=== PATIENT | male | born 1960 | race Caucasian/White ===

== ENCOUNTER → 2018-08-20 14:25 | Outpatient (CLI) | payer OTHER, MEDICAID, SELFPAY ==
--- NOTE | 2018-08-20 | DI.RAD.S_ITS ---
PROCEDURE: XR THORACIC SPINE 3V INDICATIONS: Low back pain TECHNIQUE: 3 views of the thoracic spine were acquired. COMPARISON: None. FINDINGS: Bones: No fractures or dislocations. No suspicious bony lesions. 12 pairs of ribs are noted, and appear intact where visualized. Mild degenerative endplate changes are noted in mid to lower thoracic spine. Very mild dextroscoliosis centered at T7 level is also seen. Soft tissues: No paravertebral stripe thickening. IMPRESSION: Very mild dextroscoliosis of thoracic spine. Mild degenerative disc disease in mid to lower thoracic spine. No compression fracture or traumatic spondylolisthesis. Dictated by: Jose Tidwell M.D. on 08/20/2018 at 15:25 Approved by: Jose Tidwell M.D. on 08/20/2018 at 15:28
--- NOTE | 2018-08-20 14:35 | DI.RAD.S_ITS ---
PROCEDURE: XR LUMBAR SPINE 2V INDICATIONS: Low back pain TECHNIQUE: 2 views of the lumbar spine acquired. COMPARISON: None. FINDINGS: Bones: 5 nonrib-bearing vertebrae are present. There is minimal anterolisthesis of L4 on L5.. No vertebral body compression fractures. No suspicious bony lesions. Mild degenerative endplate changes and bilateral facet arthrosis at L4-5 and L5-S1 levels are seen. Soft tissues: Overlying bowel gas pattern is normal. No suspicious soft tissue calcifications. IMPRESSION: Mild degenerative changes at L4-5 and L5-S1 levels with minimal anterolisthesis of L4 on L5. No compression fracture. Dictated by: Jose Tidwell M.D. on 08/20/2018 at 15:28 Approved by: Jose Tidwell M.D. on 08/20/2018 at 15:29
--- NOTE | 2018-08-20 14:35 | DI.RAD.S_ITS ---
PROCEDURE: XR CERVICAL SPINE 2V OR 3V INDICATIONS: Low back pain TECHNIQUE: 3 view(s) of the cervical spine were acquired. COMPARISON: None. FINDINGS: Bones: No fractures or dislocations to the T4 level. The lateral masses of C1 appear intact on the odontoid view. No suspicious bony lesions. Minimal anterolisthesis of C4 on C5 is noted. Mild degenerative endplate changes are seen at C4-5 through C6-7 levels. Soft tissues: No prevertebral soft tissue swelling. IMPRESSION: Mild degenerative disc disease at C4-5 through C6-7 levels. Minimal anterolisthesis of C4 on C5. No compression fracture. Dictated by: Jose Tidwell M.D. on 08/20/2018 at 15:29 Approved by: Jose Tidwell M.D. on 08/20/2018 at 15:30
== END ==
PROVIDERS: PCP Family Medicine; Visit Provider Family Medicine
DX: M51.34 Other intervertebral disc degeneration, thoracic region (principal); M51.36 Other intervertebral disc degeneration, lumbar region; M51.37 Other intervertebral disc degeneration, lumbosacral region; M50.321 Other cervical disc degeneration at C4-C5 level; M41.84 Other forms of scoliosis, thoracic region; M54.5 Low back pain; G89.29 Other chronic pain
CPT/HCPCS: 72040; 72072; 72100

== ENCOUNTER → 2018-12-15 10:20 | Outpatient (CLI) | payer OTHER, SELFPAY ==
[2018-12-15 10:54] LABS: Hematocrit 44.1 % (41-53); Hemoglobin 14.8 g/dL (13.5-17.5); Mean Corpuscular HGB Conc 33.5 % (30-36); Mean Corpuscular Volume 92.5 fL (80-100); Platelet Count 237 X10^3/uL (150-400); Red Blood Cell Count 4.77 X10^6/uL (4.5-5.9); Red Cell Distribution Width 13.4 % (11.6-14.8); White Blood Cell Count 6.2 X10^3/uL (4.5-11.0)
[2018-12-15 11:17] LABS: Blood Urea Nitrogen 16 mg/dL (9-20); Calcium 9.1 mg/dL (8.4-10.2); Carbon Dioxide 31 mmol/L (22-32); Chloride 101 mmol/L (98-107); Estimated Glomerular Filt Rate > 60.0 mL/min (>60); Glucose 101 mg/dL (70-100); HEMOLYSIS < 15 (0-50); Potassium 3.9 mmol/L (3.4-5.1); Sodium 139 mmol/L (137-145)
== END ==
PROVIDERS: Family Provider Family Medicine; PCP Family Medicine; Visit Provider Orthopaedic Surgery Orthopaedic Surgery of the Spine
DX: Z01.818 Encounter for other preprocedural examination (principal)
CPT/HCPCS: 36415; 80048; 85027; 93005; 93010

== ENCOUNTER → 2020-09-01 13:45 | Outpatient (CLI) | payer OTHER, SELFPAY ==
[2020-09-03 08:04] LABS: COVID19 Sendout Not Detected (Not Detect)
== END ==
PROVIDERS: Family Provider Family Medicine; PCP Family Medicine; Visit Provider Physician Assistant
DX: Z01.812 Encounter for preprocedural laboratory examination (principal)
CPT/HCPCS: 87635

== ENCOUNTER 2020-09-04 09:58 | Day surgery (SDC) | payer OTHER, SELFPAY ==
[2020-08-31 10:39] VITALS: BMI 22.5
[2020-09-04] VITALS (7 sets, daily range): BP systolic 105–142; BP diastolic 77–94; PULSE 57–78; RESP 10–20; TEMP 36.4; O2SAT 96–100; BMI 22.5
[2020-09-04] MEDS: LACTATED RINGERS 1,000 ML 100 ML IV (10:40)
--- NOTE | 2020-09-04 11:27 | PM.PREOP ---
Pre-operative Note COVID-19 COVID-19 status: Negative Interval Note History & Physical reviewed/Exam performed by Physician: Yes Changes to H&P: No
[2020-09-04] MEDS: CEFAZOLIN 2 GM/100 ML FROZ.PIGGY IV (11:36)
--- NOTE | 2020-09-04 12:00 | SUR.OPER ---
Supine on padded OR bed, head on pillow, arms secured on padded arm boards at <90 degrees abduction, legs uncrossed, safety belt at thigh, tape over blanket over lower legs.
[2020-09-04] MEDS: BUPIVACAINE 0.25% (PF) VIAL 30 ML INJ (12:04)
--- NOTE | 2020-09-04 13:06 | PM.OP.1 ---
Operative Date/Time/Diagnoses Date of procedure: 09/04/20 Time of procedure: 13:06 Pre-op diagnosis: Left inguinal hernia Post-op diagnosis: same Procedure & Clinicians Procedure: Open left inguinal hernia repair with mesh Same procedure as scheduled: Yes Indications: Symptomatic reducible left inguinal hernia Surgeon: Rex Vega Anesthesia Type: General Operative Notes Findings: Indirect and direct hernia defect Specimen(s): none sent Estimated Blood Loss (mL): 20 Procedure in detail: The patient was placed supine on the table and bilateral lower extremity compression devices were applied. Anesthesia was induced they were intubated with an LMA and received 2g of Ancef. A time-out was performed. They were prepped and draped in sterile fashion. The left external inguinal ring and the anterior superior iliac crest were identified and marked. 1 finger breath above the inguinal ligament the skin was infiltrated with 0.25% bupivacaine. The skin incision was made here and the subcutaneous tissues were divided with electrocautery exposing the external oblique aponeurosis which was then opened along the direction of its fibers. Using blunt dissection the internal oblique aporneurosis was from the external oblique upper leaflet to identify the iliohypogastric nerve. Using a kittner the cord was carefully dissected away from the inguinal canal adjacent to the pubic tubercle. The cord including the vas deferens, testicular bloody supply, ilioguinal and genital nerve were encircled with a Johnna drain. A direct floor defect was identified and it was reduced into the abdomen and the internal oblique aporneuorsis was approximated to the inguinal ligament with Ethibond suture to reapproximate the floor. The cremasteric fibers surrounding the cord were divided using electrocautery adjacent to the internal ring.. The vas deferens and the testicular vessels were preserved and protected. There was a small indirect hernia on the anterior medial aspect of the cord which was skeletonized away from the vas deferens and testicular blood supply. The indirect hernia was skeletonized back to the internal ring and reduced spontaneously into the abdomen. I selected a 7x 15 cm lightweight Pro Loop hernia mesh. The inferior medial aspect of the mesh was anchored to insertion of the rectus muscle to the pubic tubercle such that there was approximately 2 cm of tubercle overlap with Ethibond and then was run continuously along the inferior edge of the mesh to the shelving edge of the inguinal ligament. Interrupted 3 0 Vicryl suture was used to anchor the superior aspect of the mesh to the conjoined tendon in several places. The tails were then reapproximated loosely around the spermatic cord. The tails of the mesh were then tucked under the external oblique aponeurosis. The repair was checked for hemostasis. The wound was irrigated with sterile saline. The external oblique aponeurosis was reapproximated in a running fashion using 3 0 Vicryl. The subcutaneous tissues were reapproximated with 3 0 Vicryl skin closed with 4 0 Monocryl followed by the application of Dermabond. At the end of the operation I ensured that both testicles were within the scrotum. The sponge instrument count at the end operation was correct. The patient emerged from anesthesia was extubated and transferred to the postoperative care unit in stable condition. A total of 30 ml of of 0.25% bupivicaine was used to infiltrate the skin. Complications: none Post-operative Condition: stable Disposition: same day surgery
[2020-09-04] MEDS: OXYCODONE/ACETAMINOPHEN 5/325 TABLET 1 TAB PO (13:22)
--- NOTE | 2020-09-04 13:35 | SUR.PHASEI ---
Stable PACU stay, Dr. Vega spoke with pt, reported to pt no complications during case.
== END 2020-09-04 14:06 | disposition home or self-care (01) ==
PROVIDERS: Family Provider Family Medicine; PCP Family Medicine; Referring Provider Surgery; Visit Provider Surgery
PROC: (CPT 49505; principal; 2020-09-04 11:15)
DX: K40.90 Unilateral inguinal hernia, without obstruction or gangrene, not specified as recurrent (principal)
CPT/HCPCS: 49505; C1781; J0690; J1100; J1885; J2250; J2405; J2704; J3010

== ENCOUNTER → 2021-10-07 10:34 | Outpatient (CLI) | payer OTHER, MEDICAID, SELFPAY ==
[2021-10-07 20:20] LABS: COVID19 - ORCAS (NP or Nasal) Negative (Negative)
== END ==
PROVIDERS: Family Provider Family Medicine; PCP Family Medicine; Visit Provider Physician Assistant
DX: Z20.822 Contact with and (suspected) exposure to COVID-19 (principal)
CPT/HCPCS: U0003

== ENCOUNTER → 2022-07-02 07:04 | Outpatient (CLI) | payer OTHER, MEDICAID, SELFPAY ==
[2022-07-02 20:30] LABS: COVID19 - ORCAS (NP or Nasal) Negative (Negative)
== END ==
PROVIDERS: Family Provider Family Medicine; PCP Family Medicine; Visit Provider Physician Assistant Medical
DX: Z20.822 Contact with and (suspected) exposure to COVID-19 (principal); Z01.812 Encounter for preprocedural laboratory examination
CPT/HCPCS: C9803; U0003

== ENCOUNTER 2022-07-03 09:26 | Day surgery (SDC) | payer OTHER, MEDICAID, SELFPAY ==
[2022-07-02 12:16] VITALS: BMI 20.5
[2022-07-03] VITALS (7 sets, daily range): BP systolic 100–134; BP diastolic 56–83; PULSE 58–65; RESP 10–16; TEMP 36.3–36.6; O2SAT 95–99; BMI 21.5
[2022-07-03] MEDS: LACTATED RINGERS 1,000 ML 42 ML IV (09:55)
--- NOTE | 2022-07-03 11:01 | PM.PREOP ---
Pre-operative Note Interval Note History & Physical reviewed/Exam performed by Physician: Yes Changes to H&P: No
[2022-07-03] MEDS: CEFAZOLIN 2 GM IN 0.9 % NACL 100 ML IV (11:29)
--- NOTE | 2022-07-03 11:52 | SUR.OPER ---
Supine on padded OR bed, head on pillow, left arm secured on padded arm boards at <90 degrees abduction, right arm on padded arm table under control of surgeon, legs uncrossed, safety belt at thigh, tape over blanket over lower legs.
[2022-07-03] MEDS: BUPIVACAINE 0.5% W/ EPI (PF) 30 ML VIAL INJ (12:01)
--- NOTE | 2022-07-03 12:12 | P.OP_ITS ---
Operative Date/Time/Diagnoses Date of procedure: 07/03/22 Time of procedure: 11:30 Pre-op diagnosis: Right cubital tunnel Post-op diagnosis: same Procedure & Clinicians Procedure: Right cubital tunnel release Same procedure as scheduled: Yes Indications: Right cubital tunnel Surgeon: Chencho Bee Click Yes if Unassisted: Yes Anesthesia Type: General Operative Notes Findings: Compression of the ulnar nerve at the cubital tunnel. Closure Type: primary Estimated Blood Loss (mL): 0 Tourniquet time (min): 15 Procedure in detail: On date of service, the patient was met in the holding area. Patients operative site was signed and witnessed by the OR staff. The surgery was once again discussed with the patient, and any remaining questions they had were answered fully. Patient was taken back to the operating theater and placed on the operating table in a supine position. Great care was taken to ensure that all bony prominences were carefully padded. A well-padded tourniquet was placed up along the upper extremity. A timeout was performed to verify patient's name, pro cedure, and operative site. The arm was then prepped and draped in the normal sterile fashion. We then turned our attention to the cubital tunnel. Ten blade was used to make an incision centered over the cubital tunnel. Ten blade was used incise through skin and fascial tissue. Electrocautery was used to achieve hemostasis. Deep knife was used to proceed with sharp dissection. Next, Metzenbaum scissors were used to identify the nerve proximal to the cubital tunnel. This was then decompressed proximally. Next, the ulnar nerve was decompressed through the cubital tunnel by releasing the cubital tunnel. This decompression was continued distally providing a complete decompression of the nerve. Wound was irrigated and then closed in a layered fashion. The hand was then cleaned, dried, and dressed. Patient was taken to the PACU in stable condition. Complications: none Post-operative Condition: stable Disposition: PACU Plan for aftercare: Patient will follow-up postoperative protocol for cubital tunnel release
--- NOTE | 2022-07-03 12:24 | SUR.PHASEI ---
07/03/22- 12:13- per dr. Alvarez, patient has pacemaker, and no need to interrogate/do anything with pacemaker post op.
== END 2022-07-03 12:46 | disposition home or self-care (01) ==
PROVIDERS: Family Provider Family Medicine; PCP Family Medicine; Referring Provider Orthopaedic Surgery; Visit Provider Orthopaedic Surgery
PROC: (CPT 64718; principal; 2022-07-03 11:00)
DX: G56.21 Lesion of ulnar nerve, right upper limb (principal); Z95.0 Presence of cardiac pacemaker
CPT/HCPCS: 64718; J0690; J1100; J2250; J2405; J2704; J3010